=== PATIENT | female | born 1940 | race Caucasian/White ===

== ENCOUNTER 2017-01-04 13:53 | Inpatient (IN) ==
--- NOTE | 2017-01-04 14:24 | CT Report ---
Ordering physician: Velia Wright Exam: CT brain without contrast Date: 01/04/2017 Comparison: None Reason: Unsteady gait Technique: Axial images of the head were obtained without the use of contrast. Total DLP was 1081.10 mGy*cm. Findings: The lateral ventricle is minimally larger in size than the right which is felt to represent a probable normal variant. No midline displacement. There is no evidence of an acute infarction, recent intracranial hemorrhage or abnormal mass effect. Minimal atrophy and cerebral hypodensities. Vascular calcifications are noted. The osseous structures appear intact. The mastoid air cells and visualized paranasal sinuses are clear. Impression: No acute intracranial abnormality is identified. Minimal atrophy and microvascular disease. The CT exam was performed using one or more of the following dose reduction techniques: Automated exposure control and adjustment of the mA and/or kV according to patient size. PROCEDURE INTERPRETED AT [facility] DEPARTMENT OF RADIOLOGY Final Report Signed by: Dr. Joan Varner
--- NOTE | 2017-01-04 14:33 | XRay Report ---
Portable chest Date: 01/04/2017 Clinical history: Cardiomegaly Comparison: 05/02/2012 Technique: Portable AP sitting chest Findings: The heart is minimally enlarged with uncoiling of the aorta. Chronic scarring in the lungs with minimal diffuse parenchymal findings at the lung bases. Stable mediastinum with degenerative changes. Impression: Minimal cardiomegaly with minimal atelectasis/edema at the lung bases. PROCEDURE INTERPRETED AT [facility] DEPARTMENT OF RADIOLOGY Final Report Signed by: Dr. Joan Varner
[2017-01-04 14:46] LABS: Basophils % 0.2 % (0.0-0.8); Eosinophils % 0.2 % (0.00-10.9); Hematocrit 32.6 VOL% (35.7-47.0); Hemoglobin 11.8 GM/DL (12.0-16.0); Immature Granulocytes % 0.2 %; Immature Granulocytes Absolute 0.01 #; Lymphocytes % 19.6 % (21.3-54.2); Mean Corpuscular HGB Conc 36.2 GM/DL (32-36); Mean Corpuscular Hemoglobin 36 PG (27-34); Mean Corpuscular Volume 100.3 FL (87-102); Mean Platelet Volume 9.5 FL (9.6-12.0); Monocytes # 0.4 10*3/uL (0.11-0.8); Neutrophils # 3.7 10*3/uL (1.4-7.4); Neutrophils % 71.8 % (38.7-73.9); Platelet Count 181 T/CUMM (130-400); Red Blood Count 3.25 MC/CUMM (3.8-5.5); Red Cell Distribution Width 14.3 % (9.3-17.3); White Blood Count 5.1 T/CUMM (4-12)
[2017-01-04] MEDS ORDERED: SODIUM CHLORIDE 0.9% 1,000 ML IV STA (14:54)
[2017-01-04 14:55] LABS: INR 1.1; PT Patient Result 12.1 SECS; Partial Thromboplastin Time 26.4 SECS (0-40)
--- NOTE | 2017-01-04 15:06 | Emergency Department Note ---
Nathen Louise Manpreet, am scribing for, and in the presence of, Reinier Razo MD 14: 57. Danni Louise James D, MD, personally performed the services described in this documentation, ascribed by Alec Sena in my presence, and it is both accurate and complete [id number] . Arrival - Arrival Chief Complaint: Altered Mental Status Stated Complaint: possible stroke. near syncpe. vomiting ED Nursing Triage Note: Confusion and slurred speech onset x 2 days - generalized weakness - decreased PO intake Mode of Arrival: Wheelchair Limitations: No Limitations Source: Patient, RN Notes Reviewed - History of Present Illness HPI Narrative: Pt is a 76 y/o female, with PMHx of HTN, A-fib, IDDM, HLD, and thyroid disorder , who presents to the ED with CC of confusion for an unknown time. Pt thinks "I' m gonna " and "feels rotten." Pt c/o "feeling bad all over." Pt is orientated to day but not month or year. Pt denies any dysuria, SOB, or frequency. Pt states "she is thirsty not for water but for Mountain dew." Pt states she lives at home in [facility] with her son. No other pains/ complaints reported to the ED. Onset (ago): unknown (2 days ago) Consistency: constant Severity: moderate Severity scale (1-10): 3 Date of Last Menstrual Period: hyster Allergies/Adverse Reactions: Allergies Allergy/AdvReac Type Severity Reaction Status Date / Time acetaminophen [From Tylenol] Allergy Verified 09/01/14 12:27 Home Medications: Home Medications Medication Instructions Recorded Confirmed Type Aclidinium [place] [Tudorza 1 puff INH BID 09/01/14 02/14/16 History Pressair] Amiodarone HCl 200 mg PO DAILY 09/01/14 02/14/16 History Aspirin [Ecotrin] 325 mg PO DAILY 09/01/14 02/11/16 History Carbidopa/Levodopa 25-100 [Sinemet 1 tablet PO BID 09/01/14 02/11/16 History 25-100] Insulin Aspart Prot/Insuln Asp 30 unit SUBCUT BEDTIME 09/01/14 02/14/16 History [NovoLOG Mix 70-30 FlexPen] Insulin Aspart Prot/Insuln Asp 60 unit SUBCUT AC BREAKFAST 09/01/14 02/14/16 History [NovoLOG Mix 70-30 FlexPen] Levothyroxine Tab [Synthroid Tab] 100 mcg PO DAILY@0700 09/01/14 02/14/16 History Pravastatin Sodium 40 mg PO DAILY 09/01/14 02/11/16 History Apixaban [Eliquis] 5 mg PO BID 02/11/16 02/14/16 History Magnesium Oxide [Magox 400] 800 mg PO BID 02/11/16 02/14/16 History Multivitamin (Ocuvite) [Ocuvite] 1 tablet PO DAILY 02/11/16 02/11/16 History Omeprazole [Prilosec] 20 mg PO BID 02/11/16 02/14/16 History Propranolol HCl [Propranolol Tab] 10 mg PO BID 02/11/16 02/11/16 History Triamcinolone Acetonide 1 applic TOP BID 02/11/16 02/11/16 History [Triamcinolone 0.1% Cream] Triamterene/Hydrochlorothiazid 1 each PO DAILY 02/11/16 02/14/16 History [Triamterene-Hctz 37.5-25 mg Cp] cephALEXin [Keflex] 250 mg PO QID 02/11/16 02/11/16 History guaiFENesin/DM ER 600-30 [Mucinex 1 tablet PO Q12HR PRN 02/11/16 02/11/16 History Dm] Review of System - Review of System 12 point system: reviewed and no additional remarkable complaints except as stated - Review of System Constitutional: Present: weakness. Absent: chills, diaphoresis, fever Respiratory: Absent: cough Cardiovascular: Absent: chest pain Gastrointestinal: Absent: abdominal pain, nausea, vomiting Genitourinary female: Absent: dysuria, frequency Musculoskeletal: Absent: arm pain, back pain Neurological: Present: confusion. Absent: headache, weakness, numbness, paresthesias, other Medical,Surgical,& Family Hx - Medical History Cardio: History of: Cardiac Dysrhythmia (A-Fib), Hypertension, Cardiovascular Problems ([employer] Dr. Cunningham) Neurology: No history of: Seizures HEENT: History of: Eye Problem (Reading Glasses), Dental Problems (Missing Teeth ) Endocrine: History of: Diabetes Mellitus (IDDM), Dyslipidemia, Thyroid Disorder Respiratory: History of: Respiratory Problems (Chronic Cough; Abnormal CT; Dr. Montenegro Bronchoscopy 02/14/16) Genitourinary: History of: Kidney Stones Gastrointestinal: History of: GERD, Polyps Musculoskeletal: History of: Back/Neck Problems (Back Pain), Musculoskeletal Problems (Athritis) Other: No history of: Anesthesia Reactions, Cancer - Surgical History HEENT Surgeries: Surgical HX of: Eye Surgery (Cataract Rt/Lt), Thyroid Surgery ( Nuclear Pill) Abdominal Surgeries: Surgical HX of: Cholecystectomy, EGD (Many Yrs Ago), Hernia Repair Patient denies: Colonoscopy Reproductive Surgeries: Surgical HX of;: Hysterectomy (Complete) Orthopedic Surgeries: Surgical HX of;: Total Knee Replacement (Rt/Lt) - Social History Smoking Status: Never smoker Frequency of Alcohol Use: None Type of Drug Use: None Exam Vital Signs: Vital Signs Temperature 98.0 F 01/04/17 14:54 Pulse Rate 77 01/04/17 14:54 Respiratory Rate 20 01/04/17 14:54 Blood Pressure 172/72 01/04/17 14:54 O2 Sat by Pulse Oximetry 97 01/04/17 14:01 GENERAL: This is a well-nourished well-developed obese white female in no apparent distress. VITAL SIGNS: Reviewed HEENT: Head is atraumatic and normocephalic. Pupils are equal round react to light. Extraocular movements are intact. Oropharynx is benign with dry mucous membranes. NECK: Neck is soft and supple without tenderness. There are no masses. There is no lymphadenopathy. LUNGS: Lungs are clear to auscultation. Chest rises symmetrically. There is no chest wall tenderness. CV: Heart is regular rate and rhythm without murmurs rubs or gallops. ABDOMEN: Abdomen is soft, nontender to palpation. There are no abdominal abnormal masses palpated. There is no organomegaly. Bowel sounds are present and active. SKIN: Skin is warm and dry. No rash. EXTREMITIES: Patient has full range of motion without tenderness. There is no pedal edema. NEUROLOGIC: Awake, alert, oriented to person, disoriented to time. Cranial nerves II through XII are grossly intact. Motor is 5 over 5 in all extremities bilaterally. Deep tendon reflexes are 2+ and bilaterally equal. Course Course Narrative: Patient was given Rocephin in the emergency department. - Consultations Consultation #1: Discussed with hospitalist. Patient will be admitted to their service. Time: 15:47 Results - Labs CBC & BMP: 01/04/17 14:33 01/04/17 14:33 Lab Results: I have reviewed the patients labs Labs: Laboratory Tests 01/04/17 14:33 WBC 5.1 RBC 3.25 L Hgb 11.8 L Hct 32.6 L MCV 100.3 MCH 36 H MCHC 36.2 H MPV 9.5 L Lymph % (Auto) 19.6 L Lymph # (Auto) 1.0 L Laboratory Tests 01/04/17 01/04/17 01/04/17 14:33 14:33 14:33 WBC 5.1 RBC 3.25 L Hgb 11.8 L Hct 32.6 L MCV 100.3 MCH 36 H MCHC 36.2 H MPV 9.5 L Lymph % (Auto) 19.6 L Lymph # (Auto) 1.0 L INR 1.1 PT Patient/Control Mix 12.1 Circ Anticoag PTT 26.4 Sodium 135 L Potassium 3.8 Chloride 99 Carbon Dioxide 26 Anion Gap 13.8 BUN 36 H Creatinine 1.80 H GFR Calculation 29 BUN/Creatinine Ratio 20.00 Glucose 392 H Total Bilirubin 1.20 H Troponin I < 0.015 Globulin 3.9 H Serum Alcohol < 15 L - Diagnostic Findings Procedure: Chest x-ray: report reviewed by me, image reviewed by me ("Chest X- ray: Minimal cardiomegaly with minimal atelectasis/edema at the lung bases."), CT: report reviewed by me ("CT head w/o con: No acute intercranial lesion or hemorrhage.") Disposition Clinical Impression: Altered mental status, Diabetes mellitus, Moderate dehydration, Urinary tract infection Case discussed with: patient Disposition: Still a Patient Condition: Stable Time of Disposition: 15:26
[2017-01-04 15:13] LABS: Alanine Aminotransferase 24 U/L (13-56); Albumin 4.4 G/DL (3.4-5.0); Alkaline Phosphatase 69 U/L (45-117); Aspartate Amino Transferase 18 U/L (0-37); Blood Urea Nitrogen 36 MG/DL (7-18); Calcium 9.7 MG/DL (8.5-10.1); Glucose 392 MG/DL (74-106); Osmolality,Calculated 293.1 MOS/KG (273-304); Potassium 3.8 MMOL/L (3.5-5.1); Sodium 135 MMOL/L (136-145); Total Protein 8.3 G/DL (6.4-8.3); Troponin I Only < 0.015 NG/ML (0.00-0.045)
[2017-01-04 15:26] LABS: Apearance,Urine CLOUDY (Clear); Bacteria,Urine Moderate /HPF (Few); Bilirubin,Urine Negative (Negative); Blood, Urine Negative (Negative); Glucose,Urine (UA) 150 mg/dL (Negative); Ketones,Urine 5 mg/dL (Negative); Mucus,Urine Occasional /LPF (Occasional); Nitrite,Urine Negative (Negative); Protein,Urine >=500 MG/DL; Squamous Epithelial Cell,Urine Occasional /HPF (0-10); Triple Phosphate Crystal,Urine Occasional /HPF (Few); Urine Specific Gravity 1.012 (1.001-1.035); Urine Urobilinogen < 2.0 EU/DL (0.2-1.0); WBC,Urine 99 /HPF (0-6)
[2017-01-04 15:27] LABS: Urine Color Yellow (Yellow)
[2017-01-04 15:32] LABS: Barbiturates Screen,Urine Negative (Negative); Benzodiazepines Screen,Urine Negative (Negative); Cannabinoid Screen,Urine Negative (Negative); Opiate Screen,Urine Negative (Negative); Phencyclidine Screen,Urine Negative (Negative)
[2017-01-04] MEDS ORDERED: cefTRIAXone 1,000 MG in SODIUM CHLORIDE 0.9% 100 ML IV STA (15:49)
[2017-01-04] MEDS ORDERED: LABETALOL 20 MG/4 ML SYRINGE IV PRN (16:21)
[2017-01-04] MEDS ORDERED: DEXTROSE 50% 25 GM/50 ML SYRINGE IV PRN ×2 (16:31→17:56)
[2017-01-04] MEDS ORDERED: GLUCAGON 1 MG VIAL IM PRN ×2 (16:31→17:56)
--- NOTE | 2017-01-04 16:41 | Hospitalist History & Physical ---
Assessment and Plan (1) Slurred speech Status: Acute Current Visit: Yes (2) Atrial fibrillation Status: Acute Current Visit: No (3) Altered mental status Status: Acute Current Visit: Yes (4) Diabetes mellitus Status: Acute Current Visit: Yes (5) Moderate dehydration Status: Acute Current Visit: Yes (6) Urinary tract infection Status: Acute Assessment and plan: Our plan for this patient will be admitting her to monitored bed. Some of her problems could be explained by a urinary tract infection. Although she is mildly dehydrated. I did note that she is on Sinemet. She did not tell me that she had Parkinson's. Her slurred speech makes me have to consider that she has had a stroke. Her CT scan was negative. I will continue with the stroke workup. I did note that she had elevated lactate. We will repeat that lab. Continue with hydration. For now unsure about how sporadic she is with eating. I want a bedside swallowing eval since she does have slurred speech. Her son reports she is very noncompliant with all her medications. Will check an A1c to see how well her glucose is controlled Current Visit: Yes History of Present Illness Chief complaint: Slurred speech weakness and confusion History of present illness: Ms. Falcon is a 76 year old female who presents to our hospital today reporting that she just does not feel right. Patient's son reports that she has been having trouble operating her lift chair and her TV remote for the past couple of days. She usually does not have any problems. Overall she has been weaker. She has been walking slower than she normally does. She could not operate her phone. Her speech is slurred. He reports these are all changes that started 2 days ago. He wanted her to come to the emergency room but she refused. She normally sees Dr. Louise. He had a brought up to the emergency room today for further evaluation. Patient told the ER physician that she has been thirsty but not really for water so should bring drinking a lot of Mountain Dew's. She said that she feels rotten and like she is going to . I was consulted for admission. Home Medications Medication Instructions Recorded Confirmed Type Amiodarone HCl 200 mg PO DAILY 09/01/14 01/04/17 History Aspirin [Ecotrin] 325 mg PO DAILY 09/01/14 01/04/17 History Carbidopa/Levodopa 25-100 [Sinemet 1 tablet PO BID 09/01/14 01/04/17 History 25-100] Insulin Aspart Prot/Insuln Asp 40 unit SUBCUT BEDTIME 09/01/14 01/04/17 History [NovoLOG Mix 70-30 FlexPen] Insulin Aspart Prot/Insuln Asp 60 unit SUBCUT AC BREAKFAST 09/01/14 01/04/17 History [NovoLOG Mix 70-30 FlexPen] Levothyroxine Tab [Synthroid Tab] 100 mcg PO DAILY@0700 09/01/14 01/04/17 History Pravastatin Sodium 40 mg PO DAILY 09/01/14 01/04/17 History Apixaban [Eliquis] 5 mg PO BID 02/11/16 01/04/17 History Magnesium Oxide [Magox 400] 800 mg PO BID 02/11/16 01/04/17 History Multivitamin (Ocuvite) [Ocuvite] 1 tablet PO DAILY 02/11/16 01/04/17 History Omeprazole [Prilosec] 20 mg PO BID 02/11/16 01/04/17 History Propranolol HCl [Propranolol Tab] 10 mg PO BID 02/11/16 01/04/17 History Triamcinolone Acetonide 1 applic TOP BID 02/11/16 01/04/17 History [Triamcinolone 0.1% Cream] Triamterene/Hydrochlorothiazid 1 each PO DAILY 02/11/16 01/04/17 History [Triamterene-Hctz 37.5-25 mg Cp] cephALEXin [Keflex] 250 mg PO QID 02/11/16 01/04/17 History Allergies Allergy/AdvReac Type Severity Reaction Status Date / Time acetaminophen [From Tylenol] Allergy Verified 09/01/14 12:27 Medical,Surgical,& Family Hx - Medical History Cardio: History of: Cardiac Dysrhythmia (A-Fib), Hypertension, Cardiovascular Problems ([employer] Dr. Cunningham) Neurology: No history of: Seizures HEENT: History of: Eye Problem (Reading Glasses), Dental Problems (Missing Teeth ) Endocrine: History of: Diabetes Mellitus (IDDM), Dyslipidemia, Thyroid Disorder Respiratory: History of: Respiratory Problems (Chronic Cough; Abnormal CT; Dr. Montenegro Bronchoscopy 02/14/16) Genitourinary: History of: Kidney Stones Gastrointestinal: History of: GERD, Polyps Musculoskeletal: History of: Back/Neck Problems (Back Pain), Musculoskeletal Problems (Athritis) Other: No history of: Anesthesia Reactions, Cancer - Surgical History HEENT Surgeries: Surgical HX of: Eye Surgery (Cataract Rt/Lt), Thyroid Surgery ( Nuclear Pill) Abdominal Surgeries: Surgical HX of: Cholecystectomy, EGD (Many Yrs Ago), Hernia Repair Patient denies: Colonoscopy Reproductive Surgeries: Surgical HX of;: Hysterectomy (Complete) Orthopedic Surgeries: Surgical HX of;: Total Knee Replacement (Rt/Lt) - Family History Family History: Reports;: Family Hypertension - Social History Smoking Status: Never smoker Frequency of Alcohol Use: None Type of Drug Use: None 12 point system: reviewed and no additional remarkable complaints except as stated Exam - Constitutional Vitals: Period Temp Pulse Resp BP Sys/Winn Pulse Ox Last 24 Hr 98.0 F-98.0 F 77-77 18-20 172-172/72-72 97 General appearance: over weight - Head Head exam: Present: normal inspection - Eye Eye exam: Present: EOMI Pupils: Present: KELSEY - ENT ENT exam: Present: normal exam - Neck Neck exam: Present: normal inspection - Respiratory Respiratory exam: Present: clear to auscultation bilaterally - Cardiovascular Cardiovascular exam: Present: regular rate and rhythm - GI/Abdominal GI/Abdominal exam: Present: normal bowel sounds - Extremities Exam Extremities exam: Present: normal inspection - Back Exam Back exam: Present: normal inspection - Neurological Exam Neurological exam: Present: other (Patient is awake. Her speech is definitely slurred. Her mind process seems to be slower. She is globally weak cannot final weakness that lateralizes. Reflexes are +2 and equal) - Psychiatric Psychiatric exam: Present: depressed - Skin Skin exam: Present: normal color Results - Labs CBC & BMP: 01/04/17 14:33 01/04/17 14:33
[2017-01-04] MEDS ORDERED: cefTRIAXone 1,000 MG VIAL ONE (16:49)
--- NOTE | 2017-01-04 17:20 | Ultrasound Report ---
Exam: Carotid ultrasound Date: 09/03/2016 Comparison: 12/17/2014 Technique: Duplex scans of the carotid and vertebral arteries using B-mode/Osei scale imaging and Doppler spectral analysis and color flow. Reason: Slurred speech and weakness Findings: The right ICA measures 4.0 mm in diameter and the left ICA measures 3.8 mm in diameter. Color-flow documented in the visualized arteries. The peak systolic velocities are as follows: Right CCA: 83.3 Right ICA: 123.3 Right ECA: 131.3 Left CCA: 60.2 Left ICA: 91.7 Left ECA: 74.0 The peak systolic ICA/CCA velocity ratios are as follows: 1.5 on the right and 1.5 on the left. Antegrade flow is present in both vertebral arteries. Impression:[Less than 50% stenosis in both internal carotid arteries with progressive calcific plaque formation. Antegrade flow in both vertebral arteries. The patient's heart rate is noted to be irregular on the scans that were obtained.] The Society of Radiologists in Ultrasound consensus conference criteria was used. The Ultrasound images were captured and stored. PROCEDURE INTERPRETED AT [facility] DEPARTMENT OF RADIOLOGY Final Report Signed by: Dr. Joan Varner
[2017-01-04] MEDS ORDERED: INSULIN NPH/REGULAR 70/30 100 UNIT/ML SUBCUT SCH (21:00)
[2017-01-04] MEDS: SODIUM CHLORIDE 0.9% 1,000 ML IV SCH (21:04)
[2017-01-04] MEDS: PROPRANOLOL 10 MG TABLET PO SCH (21:05)
[2017-01-04] MEDS: PANTOPRAZOLE 40 MG TABLET PO SCH (21:05)
[2017-01-04] MEDS: APIXABAN 5 MG TABLET PO SCH (21:05)
[2017-01-04] MEDS: MAGNESIUM OXIDE 400 MG TABLET PO SCH (21:05)
[2017-01-04] MEDS: TRIAMCINOLONE 0.1% CREAM 15 GM TUBE TOP SCH (21:05)
[2017-01-04] MEDS: INSULIN REGULAR 100 UNIT/ML SUBCUT SCH (21:05)
[2017-01-04] MEDS: CARBIDOPA/LEVODOPA 25-100 MG TABLET PO SCH (21:05)
[2017-01-05] MEDS: SODIUM CHLORIDE 0.9% 1,000 ML IV SCH ×2 (06:21→14:23)
[2017-01-05] MEDS: LEVOTHYROXINE 100 MCG TABLET PO SCH (06:21)
[2017-01-05] MEDS ORDERED: INSULIN NPH/REGULAR 70/30 100 UNIT/ML SUBCUT SCH ×3 (07:30→08:53)
[2017-01-05 07:38] LABS: Basophils % 0.4 % (0.0-0.8); Eosinophils # 0.1 10*3/uL (0.0-0.87); Eosinophils % 1.1 % (0.00-10.9); Hematocrit 27.9 VOL% (35.7-47.0); Lymphocytes # 1.7 10*3/uL (1.4-4.0); Lymphocytes % 36.5 % (21.3-54.2); Mean Corpuscular HGB Conc 35.8 GM/DL (32-36); Mean Corpuscular Hemoglobin 36 PG (27-34); Mean Corpuscular Volume 101.5 FL (87-102); Mean Platelet Volume 9.7 FL (9.6-12.0); Monocytes # 0.5 10*3/uL (0.11-0.8); Monocytes % 11.5 % (1.7-12.7); Neutrophils # 2.3 10*3/uL (1.4-7.4); Neutrophils % 50.5 % (38.7-73.9); Platelet Count 179 T/CUMM (130-400); Red Blood Count 2.75 MC/CUMM (3.8-5.5); Red Cell Distribution Width 14.5 % (9.3-17.3); White Blood Count 4.5 T/CUMM (4-12)
[2017-01-05 08:10] LABS: Calcium 8.3 MG/DL (8.5-10.1); Osmolality,Calculated 287.8 MOS/KG (273-304)
--- NOTE | 2017-01-05 08:36 | Hospitalist Progress Note ---
Hospitalist: Subjective Interval history: Patient admitted for evaluation of possible stroke. She states that her speech is her normal. She does not feel it has changed. She has no further complaints. Exam - Constitutional Vitals: Period Temp Pulse Resp BP Sys/Winn Pulse Ox Last 24 Hr 97.1 F-98.4 F 56-77 16-20 106-172/52-84 88-100 General appearance: no acute distress, morbidly obese - Head Head exam: Present: normal inspection, normocephalic - Eye Eye exam: Present: EOMI, conjunctival injection Pupils: Present: KELSEY - ENT ENT exam: Present: other (edentulous) - Respiratory Respiratory exam: Present: clear to auscultation bilaterally. Absent: rales, rhonchi, wheezes - Cardiovascular Cardiovascular exam: Present: regular rate and rhythm. Absent: systolic murmur - GI/Abdominal GI/Abdominal exam: Present: normal bowel sounds, soft. Absent: tenderness - Extremities Exam Extremities exam: Absent: edema - Neurological Exam Neurological exam: Present: alert (oriented to name and place, not date or year ; no obvious slurred speech), CN II-XII intact, other - Psychiatric Psychiatric exam: Present: normal affect, normal mood - Skin Skin exam: Present: normal color, warm Results - Labs CBC & BMP: 01/05/17 06:57 01/05/17 06:57 - Impressions 1. Slurred speech, concerning for stroke. Patient states that current speech is her normal. It may be influenced by her edentulous state. Carotid doppler shows <50% carotid artery stenosis; MRI/echo ordered 2. Acute encephalopathy, could be 2nd to UTI or mild dehydration 3. Possible UTI: UA with pyuria; continue antibiotics; await urine culture 4. JACKELINE/dehydration: Improving 5. Anemia: HCT dropped; could be diluational 6. h/o DM: sugars initially uncontrolled; now with sugar of 62; hba1c: 10.1 7. h/o P-afib: on eliquis and amiodarone; keep mg at least 2 and k at least 4 8. HypoK: replete; monitor Plan: await results of echo/mri;PT/OT/speech/hold maxzide; continue aspirin; monitor renal functions; basic anemia work up; control sugars; adjust insulin to avoid hypoglycemia; continue rocephin for now; await urine culture.
[2017-01-05] MEDS ORDERED: POTASSIUM CHLORIDE 20 MEQ TABLET PO ONE (08:53)
[2017-01-05] MEDS ORDERED: ASPIRIN EC 325 MG TABLET PO SCH (09:00)
[2017-01-05] MEDS ORDERED: TRIAMTERENE/HCTZ 37.5-25 MG CAPSULE PO SCH (09:00)
[2017-01-05] MEDS: INSULIN REGULAR 100 UNIT/ML SUBCUT SCH ×4 (09:31→20:41)
[2017-01-05] MEDS: MAGNESIUM OXIDE 400 MG TABLET PO SCH ×2 (09:32→20:42)
[2017-01-05] MEDS: MULTIVITAMIN (OCUVITE) TABLET PO SCH (09:32)
[2017-01-05] MEDS: PROPRANOLOL 10 MG TABLET PO SCH ×2 (09:32→20:42)
[2017-01-05] MEDS: CARBIDOPA/LEVODOPA 25-100 MG TABLET PO SCH ×2 (09:32→20:41)
[2017-01-05] MEDS: AMIODARONE 200 MG TABLET PO SCH (09:32)
[2017-01-05] MEDS: PANTOPRAZOLE 40 MG TABLET PO SCH ×2 (09:33→20:42)
[2017-01-05] MEDS: PRAVASTATIN 40 MG TABLET PO SCH (09:33)
[2017-01-05] MEDS: APIXABAN 5 MG TABLET PO SCH ×2 (09:35→20:41)
[2017-01-05] MEDS: TRIAMCINOLONE 0.1% CREAM 15 GM TUBE TOP SCH ×2 (09:36→20:42)
[2017-01-05] MEDS: POTASSIUM CHLORIDE RIDER 10 MEQ in PREMIX 1 EACH IV SCH ×3 (09:50→14:23)
--- NOTE | 2017-01-05 10:11 | Neurology Consult Note ---
History of Present Illness History of present illness: 76 years old right-handed white lady with past medical history significant for multiple medical problems admitted to the hospital with feeling tired, fatigued some confusion. Patient's son reports that she has been having trouble operating her lift chair and her TV remote for the past couple of days. She usually does not have any problems. Overall she reported some weakness but not anymore. She was brought to the hospital and found to have UTI. She is on antibiotic and doing much better. CT of the head is unremarkable for any acute pathology. She is able to get up and walk with help of a rolling walker. Her speech is fluent. No dysarthria noted. No focal weakness noted. Home Medications Medication Instructions Recorded Confirmed Type Amiodarone HCl 200 mg PO DAILY 09/01/14 01/04/17 History Aspirin [Ecotrin] 325 mg PO DAILY 09/01/14 01/04/17 History Carbidopa/Levodopa 25-100 [Sinemet 1 tablet PO BID 09/01/14 01/04/17 History 25-100] Insulin Aspart Prot/Insuln Asp 40 unit SUBCUT BEDTIME 09/01/14 01/04/17 History [NovoLOG Mix 70-30 FlexPen] Insulin Aspart Prot/Insuln Asp 60 unit SUBCUT AC BREAKFAST 09/01/14 01/04/17 History [NovoLOG Mix 70-30 FlexPen] Levothyroxine Tab [Synthroid Tab] 100 mcg PO DAILY@0700 09/01/14 01/04/17 History Pravastatin Sodium 40 mg PO DAILY 09/01/14 01/04/17 History Apixaban [Eliquis] 5 mg PO BID 02/11/16 01/04/17 History Magnesium Oxide [Magox 400] 800 mg PO BID 02/11/16 01/04/17 History Multivitamin (Ocuvite) [Ocuvite] 1 tablet PO DAILY 02/11/16 01/04/17 History Omeprazole [Prilosec] 20 mg PO BID 02/11/16 01/04/17 History Propranolol HCl [Propranolol Tab] 10 mg PO BID 02/11/16 01/04/17 History Triamcinolone Acetonide 1 applic TOP BID 02/11/16 01/04/17 History [Triamcinolone 0.1% Cream] Triamterene/Hydrochlorothiazid 1 each PO DAILY 02/11/16 01/04/17 History [Triamterene-Hctz 37.5-25 mg Cp] cephALEXin [Keflex] 250 mg PO QID 02/11/16 01/04/17 History Allergies Allergy/AdvReac Type Severity Reaction Status Date / Time acetaminophen [From Tylenol] Allergy Verified 09/01/14 12:27 12 point system: reviewed and no additional remarkable complaints except as stated Medical,Surgical,& Family Hx - Medical History Cardio: History of: Cardiac Dysrhythmia (A-Fib), Hypertension, 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 Montenegro Bronchoscopy 02/14/16) Genitourinary: History of: Kidney Stones Gastrointestinal: History of: GERD, Polyps Musculoskeletal: History of: Back/Neck Problems (Back Pain), Musculoskeletal Problems (Athritis) Other: No history of: Anesthesia Reactions, Cancer - Surgical History HEENT Surgeries: Surgical HX of: Eye Surgery (Cataract Rt/Lt), Thyroid Surgery ( Nuclear Pill) Abdominal Surgeries: Surgical HX of: Cholecystectomy, EGD (Many Yrs Ago), Hernia Repair Patient denies: Colonoscopy Reproductive Surgeries: Surgical HX of;: Hysterectomy (Complete) Orthopedic Surgeries: Surgical HX of;: Total Knee Replacement (Rt/Lt) - Family History Family History: Reports;: Family Diabetes (both parents), Family Heart Disease, Family Hypertension - Social History Smoking Status: Never smoker Frequency of Alcohol Use: None Type of Drug Use: None Exam - Constitutional Vitals: Period Temp Pulse Resp BP Sys/Winn Pulse Ox Last 24 Hr 97.1 F-98.4 F 56-77 16-20 106-172/52-84 88-100 Exam: GENERAL: Patient is in no acute distress. NECK: Neck is supple. There is no JVD. No carotid bruits present. No thyroid masses. CVS: First and second heart sounds are normal. There is no S3 present. Regular rate and rhythm. RESPIRATORY: Lungs are clear to auscultation without any rales or rhonchi. ABDOMEN: Soft and non-tender. Bowel sounds are present. There is no hepatosplenomegaly. EXT: There is no palpable edema. Peripheral pulses are present. Skin: No rashes Central Nervous system: General: Alert, awake and Oriented x 3 Speech: Fluent Comprehension: Intact and normal Facial expressions: Normal Cranial Nerves: CN1/Olfactory: Normal CN II/ Optic: Normal, Visual Jain unreliable CN III, and : KELSEY & EOMI CN V: Normal & intact CN VII: face is symmetric CNVIII: Normal CN XI/X/XI/XII: Intact and Normal Motor: Bulk and Tone is normal. Strength in the right 5/5 Strength in the left 5/5 Sensory: Grossly intact for all the modalities of PP, LT and temp sense Reflexes: 1+ and symmetrical Cerebellar function: Normal finger to nose and heel to arshad testing. Toes: Equivocal Gait: Able to get up and walk with the help of a walker Results - Labs CBC & BMP: 01/05/17 06:57 01/05/17 06:57 Assessment and Plan (1) Altered mental status Status: Acute Assessment and plan: Altered mental status likely related to UTI. No evidence of stroke, TIAs, epilepsy or seizures Cancel MRI Stop aspirin Continue Eliquis 5 mg twice daily No further intervention needed from neuro standpoint Agree with PT and OT Thank you for the consult Current Visit: Yes
[2017-01-05] MEDS ORDERED: POTASSIUM CHLORIDE RIDER 10 MEQ in PREMIX 1 EACH IV ONE (18:30)
[2017-01-06 06:17] LABS: Basophils % 0.2 % (0.0-0.8); Eosinophils # 0.1 10*3/uL (0.0-0.87); Eosinophils % 1.6 % (0.00-10.9); Hematocrit 27.9 VOL% (35.7-47.0); Hemoglobin 9.6 GM/DL (12.0-16.0); Immature Granulocytes % 0.2 %; Immature Granulocytes Absolute 0.01 #; Lymphocytes # 1.9 10*3/uL (1.4-4.0); Lymphocytes % 36.8 % (21.3-54.2); Mean Corpuscular HGB Conc 34.4 GM/DL (32-36); Mean Corpuscular Hemoglobin 36 PG (27-34); Mean Corpuscular Volume 105.3 FL (87-102); Mean Platelet Volume 9.6 FL (9.6-12.0); Monocytes # 0.6 10*3/uL (0.11-0.8); Monocytes % 11.4 % (1.7-12.7); Neutrophils # 2.6 10*3/uL (1.4-7.4); Neutrophils % 49.8 % (38.7-73.9); Platelet Count 154 T/CUMM (130-400); Red Blood Count 2.65 MC/CUMM (3.8-5.5); Red Cell Distribution Width 14.5 % (9.3-17.3); White Blood Count 5.2 T/CUMM (4-12)
[2017-01-06] MEDS: LEVOTHYROXINE 100 MCG TABLET PO SCH (06:36)
[2017-01-06] MEDS: POTASSIUM CHLORIDE RIDER 10 MEQ in PREMIX 1 EACH IV SCH (06:41)
[2017-01-06 06:54] LABS: % Iron Saturation 37.5 % (18-50); Ferritin 152.3 ng/ml (8-252); Free T4 (Free Thyroxine) 0.34 NG/DL (0.76-1.46); Magnesium 2.1 MG/DL (1.8-2.4); Potassium 3.4 MMOL/L (3.5-5.1); Thyroid Stimulating Hormone 50.7 uIU/ml (0.358-3.74)
[2017-01-06] MEDS: INSULIN REGULAR 100 UNIT/ML SUBCUT SCH ×2 (08:49→12:50)
[2017-01-06] MEDS: PROPRANOLOL 10 MG TABLET PO SCH (08:50)
[2017-01-06] MEDS: PANTOPRAZOLE 40 MG TABLET PO SCH (08:50)
[2017-01-06] MEDS: CARBIDOPA/LEVODOPA 25-100 MG TABLET PO SCH (08:50)
[2017-01-06] MEDS: PRAVASTATIN 40 MG TABLET PO SCH (08:50)
[2017-01-06] MEDS: MULTIVITAMIN (OCUVITE) TABLET PO SCH (08:50)
[2017-01-06] MEDS: APIXABAN 5 MG TABLET PO SCH (08:51)
[2017-01-06] MEDS: MAGNESIUM OXIDE 400 MG TABLET PO SCH (08:51)
[2017-01-06] MEDS: AMIODARONE 200 MG TABLET PO SCH (08:51)
[2017-01-06] MEDS: TRIAMCINOLONE 0.1% CREAM 15 GM TUBE TOP SCH (08:54)
[2017-01-06] MEDS ORDERED: ASPIRIN EC 81 MG TABLET PO SCH (09:00)
--- NOTE | 2017-01-06 10:50 | Discharge Summary ---
Hospital Course - Hospital Course Hospital Course: Patient admitted for slurred speech and confusion. There was a concern for a stroke. Head CT did not show an acute abnormality. Carotid ultrasound showed no <50% stenosis. When I saw the patient on 01/05/17, there were no dysarthria. She was fairly oriented and confusion had resolved. She was seen by neurology and Dr. Hair did not feel she had a stroke. So, MRI was cancelled. Patient was likely confused because of hypoglycemic episodes. While inpatient, her am sugars were low. They were 50-72 despite adjustments. Her evening dose of novolog 70-30 will be held and her morning dose of novolog 70-30 will be reduced until she is seen by her PCP. Her PCP may consider switching to lantus. Another thought for her symptoms were possible UTI. Her UA showed pyuria, and she was started on rocephin. Her UCX showed no growth. At this point, will not discharge on antibiotics. She will need to follow up with her PCM in 1-2 weeks. Discharge Plan - Discharge Data Condition at Discharge: Stable Discharge Diet: diabetic diet - Discharge Medications Continue Pravastatin Sodium 40 mg PO DAILY Amiodarone HCl 200 mg PO DAILY Aspirin [Ecotrin] 325 mg PO DAILY Levothyroxine Tab [Synthroid Tab] 100 mcg PO DAILY@0700 Carbidopa/Levodopa 25-100 [Sinemet 25-100] 1 tablet PO BID Multivitamin (Ocuvite) [Ocuvite] 1 tablet PO DAILY Propranolol HCl [Propranolol Tab] 10 mg PO BID Apixaban [Eliquis] 5 mg PO BID Triamcinolone Acetonide [Triamcinolone 0.1% Cream] 1 applic TOP BID Omeprazole [Prilosec] 20 mg PO BID Magnesium Oxide [Magox 400] 800 mg PO BID Changed Insulin Aspart Prot/Insuln Asp [NovoLOG Mix 70-30 FlexPen] 10 unit SUBCUT AC BREAKFAST #0 Discontinued Insulin Aspart Prot/Insuln Asp [NovoLOG Mix 70-30 FlexPen] 40 unit SUBCUT BEDTIME cephALEXin [Keflex] 250 mg PO QID Triamterene/Hydrochlorothiazid [Triamterene-Hctz 37.5-25 mg Cp] 1 each PO DAILY - Follow Up or Referral - Forms/Instructions Additional Discharge Instructions: follow up with your main doctor in 1-2 weeks. Your doctor will need to let you know how much insulin you need. Your doctor will also need to check your kidneys. Please only take 10 units of your insulin (novolog 70-30) in the morning. Please check your sugars and give the readings to your main provider. Exam - Constitutional Vitals: Period Temp Pulse Resp BP Sys/Winn Pulse Ox Last 24 Hr 96.9 F-97.9 F 50-117 18-20 106-159/54-91 91-98 General appearance: no acute distress - Head Head exam: Present: normal inspection - Respiratory Respiratory exam: Present: clear to auscultation bilaterally. Absent: rales, rhonchi, wheezes - Cardiovascular Cardiovascular exam: Present: regular rate and rhythm - GI/Abdominal GI/Abdominal exam: Present: normal bowel sounds, soft. Absent: tenderness - Extremities Exam Extremities exam: Absent: edema - Neurological Exam Neurological exam: Present: alert (oriented x2), other (no dysarthria) - Psychiatric Psychiatric exam: Present: normal affect, normal mood - Skin Skin exam: Present: normal color, warm Discharge Results Procedures and tests throughout hospitalization: Pending Orders 01/04/17 Urine Culture Routine 01/04/17 19:12 Blood Culture Stat 01/05/17 16:32 Occult Blood, Stool Routine Labs on day of discharge: Labs from last 24 hours 01/06/17 01/06/17 01/06/17 07:39 05:33 05:33 WBC RBC Hgb Hct MCV MCH MCHC RDW Plt Count MPV Neut % (Auto) Lymph % (Auto) [place] % (Auto) Eos % (Auto) Baso % (Auto) Neut # (Auto) Lymph # (Auto) [place] # (Auto) Eos # (Auto) Baso # (Auto) Immature Gran % Nucleated RBC % Immature Gran # Nucleated RBCs # Immature Plt Fraction Absolute Retic Percent Retic Retic Hgb Equivalent Sodium 143 Potassium 3.4 L Chloride 110 H Carbon Dioxide 27 Anion Gap 9.4 BUN 18 Creatinine 1.60 H GFR Calculation 33 BUN/Creatinine Ratio 11.00 Glucose 50 L POC Glucose 72 L Calculated Osmolality 283.0 Calcium 8.0 L Magnesium 2.1 Iron 97 TIBC 259 % Saturation 37.5 Ferritin 152.3 Vitamin B12 259 Free T4 0.34 L TSH 3rd Generation 50.700 H 01/06/17 01/05/17 01/05/17 05:33 20:09 15:06 WBC 5.2 RBC 2.65 L Hgb 9.6 L Hct 27.9 L MCV 105.3 H MCH 36 H MCHC 34.4 RDW 14.5 Plt Count 154 MPV 9.6 Neut % (Auto) 49.8 Lymph % (Auto) 36.8 [place] % (Auto) 11.4 Eos % (Auto) 1.6 Baso % (Auto) 0.2 Neut # (Auto) 2.6 Lymph # (Auto) 1.9 [place] # (Auto) 0.6 Eos # (Auto) 0.1 Baso # (Auto) 0.0 Immature Gran % 0.2 Nucleated RBC % 0.0 Immature Gran # 0.01 Nucleated RBCs # 0.00 Immature Plt Fraction 0.0 Absolute Retic 0.1 Percent Retic 2.4 H Retic Hgb Equivalent 38.5 H Sodium Potassium Chloride Carbon Dioxide Anion Gap BUN Creatinine GFR Calculation BUN/Creatinine Ratio Glucose POC Glucose 270 H 85 Calculated Osmolality Calcium Magnesium Iron TIBC % Saturation Ferritin Vitamin B12 Free T4 TSH 3rd Generation 01/05/17 01/05/17 11:43 07:25 WBC RBC Hgb Hct MCV MCH MCHC RDW Plt Count MPV Neut % (Auto) Lymph % (Auto) [place] % (Auto) Eos % (Auto) Baso % (Auto) Neut # (Auto) Lymph # (Auto) [place] # (Auto) Eos # (Auto) Baso # (Auto) Immature Gran % Nucleated RBC % Immature Gran # Nucleated RBCs # Immature Plt Fraction Absolute Retic Percent Retic Retic Hgb Equivalent Sodium Potassium Chloride Carbon Dioxide Anion Gap BUN Creatinine GFR Calculation BUN/Creatinine Ratio Glucose POC Glucose 146 H 71 L Calculated Osmolality Calcium Magnesium Iron TIBC % Saturation Ferritin Vitamin B12 Free T4 TSH 3rd Generation Preliminary micro results at discharge 01/04/17 19:12 Blood Culture - Preliminary Blood No growth at 1 day 01/04/17 19:12 Blood Culture - Preliminary Blood No growth at 1 day 01/04/17 Unknown Urine Culture - Preliminary Urine,Voided No Growth at 24 hours. - Impressions Active Issues: 1. Slurred speech, concerning for stroke. Now resolved. Patient seen by neurology and Dr. Hair did not think she had a stroke. Her abnormal speech may be influenced by her edentulous state. Carotid doppler shows <50% carotid artery stenosis. 2. Acute encephalopathy, could be 2nd to UTI, mild dehydration, or hypoglycemic episodes 3. Possible UTI: UA with pyuria; UCX shows no growth; received antibiotics while inpatient; will not order antibiotics upon discharge 4. JACKELINE/dehydration: overall improved/resolved 5. Anemia: HCT dropped but stable; could be dilutional 6. h/o DM: hba1c of 10.1; low morning sugars; so, will hold pm novolog 70-30 and reduce am novolog 70-30 to 10U; patient will need to follow up with PCM 7. h/o P-afib: on eliquis and amiodarone 8. HypoK: replete; monitor 9. Hemodynamically and clinically stable; safe for discharge; she will need to follow up with PCM in 1-2 weeks DS: Provider Date of admission: 01/04/17 15:57 Primary care physician: Davis Louise, Attending physician on admission: Nicholas Jacome MD Consults: 01/04/17 16:22 Consult to Case Mgmt/Social Srvs [CONS] Routine Reason for Case Mgmt/Social Srvs: Discharge Planning Consult to Occupational Therapy [CONS] Routine Reason for Occupational Therapy: Evaluate and Treat Consult Comment: Stroke Consult to Physical Therapy [CONS] Routine Reason for Physical Therapy: Evaluate and Treat Consult Comment: stroke 01/04/17 17:56 Consult to Physician [CONS] Routine Comment: slurred speach Consulting Provider: Giancarlo Hair Person Notified: Agueda Date Notified: 01/05/17 Time Notified: 09:12 Consult Notification Comment: left message [id number]- 01/05/17 Discharging clinician: Clinton Springer MD
[2017-01-06] MEDS ORDERED: POTASSIUM CHLORIDE 20 MEQ TABLET PO ONE (10:55)
--- NOTE | 2017-01-06 11:08 | Order Completion Report ---
See report scanned to EMR
--- NOTE | 2017-01-06 11:57 | Order Completion Report ---
See report scanned to EMR
[2017-01-06 15:42] VITALS: BP 162/80
--- NOTE | 2017-01-09 18:03 | Order Completion Report ---
See report scanned to EMR
== END 2017-01-06 16:49 | disposition home or self-care (01) | DRG 637 ==
LOC: N.ED 13:53 → SUATTDRO 16:53 → N.EDINP 16:53 → N.5E 17:10
PROVIDERS: ADMIT Internal Medicine; ATTEND Internal Medicine

== ENCOUNTER 2018-04-23 10:53 | Inpatient (IN) ==
[2018-04-23 12:35] LABS: Basophils % 0.2 % (0.0-0.8); Eosinophils % 0.2 % (0.00-10.9); Hematocrit 26.8 VOL% (35.7-47.0); Hemoglobin 8.8 GM/DL (12.0-16.0); Immature Granulocytes % 0.4 %; Immature Granulocytes Absolute 0.02 #; Lymphocytes # 1.3 10*3/uL (1.4-4.0); Lymphocytes % 23.1 % (21.3-54.2); Mean Corpuscular HGB Conc 32.8 GM/DL (32-36); Mean Corpuscular Hemoglobin 34 PG (27-34); Mean Corpuscular Volume 104.3 FL (87-102); Mean Platelet Volume 10.2 FL (9.6-12.0); Monocytes # 0.6 10*3/uL (0.11-0.8); Neutrophils # 3.8 10*3/uL (1.4-7.4); Neutrophils % 66.1 % (38.7-73.9); Platelet Count 262 T/CUMM (130-400); Red Blood Count 2.57 MC/CUMM (3.8-5.5); Red Cell Distribution Width 16.4 % (9.3-17.3); White Blood Count 5.7 T/CUMM (4-12)
[2018-04-23 12:43] LABS: Apearance,Urine CLOUDY (Clear); Bacteria,Urine Many /HPF (Few); Bilirubin,Urine Negative (Negative); Blood, Urine Moderate mg/dL (Negative); Glucose,Urine (UA) >=500 mg/dL (Negative); Ketones,Urine Negative (Negative); Nitrite,Urine Negative (Negative); Protein,Urine 100 MG/DL; RBC,Urine 1012 /HPF (0-4); Squamous Epithelial Cell,Urine Occasional /HPF (0-10); Urine Color Yellow (Yellow); Urine Specific Gravity 1.018 (1.001-1.035); Urine Urobilinogen < 2.0 EU/DL (0.2-1.0); WBC,Urine 65 /HPF (0-6)
[2018-04-23] MEDS ORDERED: SODIUM CHLORIDE 0.9% 1,000 ML IV STA (13:11)
[2018-04-23 13:42] LABS: Bilirubin,Total 0.7 MG/DL (0.2-1.0); Calcium 8.3 MG/DL (8.5-10.1); Osmolality,Calculated 291.7 MOS/KG (273-304); Potassium 3.6 MMOL/L (3.5-5.1); Total Protein 7.3 G/DL (6.4-8.3)
[2018-04-23] MEDS ORDERED: cefTRIAXone 1,000 MG in SODIUM CHLORIDE 0.9% 100 ML IV STA (13:51)
[2018-04-23 14:02] LABS: Albumin 3.7 G/DL (3.4-5.0)
[2018-04-23] MEDS ORDERED: GLUCAGON 1 MG VIAL IM PRN (14:16)
[2018-04-23] MEDS ORDERED: BISACODYL 5 MG TABLET PO PRN (14:16)
[2018-04-23] MEDS ORDERED: ONDANSETRON 4 MG/2 ML VIAL IV PRN (14:16)
[2018-04-23] MEDS ORDERED: cefTRIAXone 1,000 MG VIAL ONE (14:23)
[2018-04-23] MEDS ORDERED: INSULIN LISPRO 100 UNIT/ML ONE (14:47)
[2018-04-23] MEDS ORDERED: INSULIN REGULAR 100 UNIT/ML SUBCUT STA (14:49)
[2018-04-23] MEDS: SODIUM CHLORIDE 0.45% 1,000 ML IV SCH (15:02)
[2018-04-23] MEDS: INSULIN LISPRO 100 UNIT/ML SUBCUT SCH ×2 (16:49→21:14)
[2018-04-23 16:58] LABS: % Iron Saturation 54.8 % (18-50); Ferritin 139.6 ng/ml (8-252)
[2018-04-23 17:15] LABS: Folate 10.6 NG/ML (5.4-24.0)
[2018-04-23] MEDS: INSULIN ASPART PROTAMINE/ASPART 70/30 100 UNIT/ML SUBCUT SCH (21:14)
[2018-04-23] MEDS: GABAPENTIN 100 MG CAPSULE PO SCH (21:14)
[2018-04-23] MEDS: PROPRANOLOL 10 MG TABLET PO SCH (21:14)
[2018-04-23] MEDS: PANTOPRAZOLE 40 MG TABLET PO SCH (21:14)
[2018-04-23] MEDS: APIXABAN 5 MG TABLET PO SCH (21:14)
[2018-04-23] MEDS: MAGNESIUM OXIDE 400 MG TABLET PO SCH (21:14)
[2018-04-24 04:51] LABS: Basophils % 0.1 % (0.0-0.8); Eosinophils % 0.4 % (0.00-10.9); Hematocrit 27.4 VOL% (35.7-47.0); Hemoglobin 9.2 GM/DL (12.0-16.0); Immature Granulocytes % 0.4 %; Immature Granulocytes Absolute 0.03 #; Lymphocytes # 1.7 10*3/uL (1.4-4.0); Mean Corpuscular HGB Conc 33.6 GM/DL (32-36); Mean Corpuscular Hemoglobin 35 PG (27-34); Mean Corpuscular Volume 103.8 FL (87-102); Mean Platelet Volume 9.7 FL (9.6-12.0); Monocytes # 0.8 10*3/uL (0.11-0.8); Monocytes % 9.8 % (1.7-12.7); NRBC # 0.03 10*3/uL; Neutrophils # 5.4 10*3/uL (1.4-7.4); Neutrophils % 68.3 % (38.7-73.9); Platelet Count 299 T/CUMM (130-400); Red Blood Count 2.64 MC/CUMM (3.8-5.5); Red Cell Distribution Width 16.1 % (9.3-17.3); White Blood Count 7.9 T/CUMM (4-12)
[2018-04-24 05:08] LABS: Calcium 8.6 MG/DL (8.5-10.1); Osmolality,Calculated 269.7 MOS/KG (273-304); Potassium 2.7 MMOL/L (3.5-5.1); Risk Ratio 2.94; VLDL CHOLESTEROL 21.8 MG/DL
[2018-04-24] MEDS: DEXTROSE 50% 25 GM/50 ML VIAL IV PRN ×2 (05:28→07:10)
[2018-04-24] MEDS: SODIUM CHLORIDE 0.45% 1,000 ML IV SCH ×2 (05:38→15:35)
[2018-04-24] MEDS: LEVOTHYROXINE 100 MCG TABLET PO SCH (07:11)
[2018-04-24] MEDS: INSULIN LISPRO 100 UNIT/ML SUBCUT SCH ×4 (08:58→21:54)
[2018-04-24] MEDS: INSULIN ASPART PROTAMINE/ASPART 70/30 100 UNIT/ML SUBCUT SCH ×2 (08:58→21:54)
[2018-04-24] MEDS ORDERED: TRIAMTERENE/HCTZ 37.5-25 MG TABLET PO SCH (09:00)
[2018-04-24] MEDS: PROPRANOLOL 10 MG TABLET PO SCH ×2 (09:17→21:54)
[2018-04-24] MEDS: PANTOPRAZOLE 40 MG TABLET PO SCH ×2 (09:17→21:54)
[2018-04-24] MEDS: MAGNESIUM OXIDE 400 MG TABLET PO SCH ×2 (09:17→21:54)
[2018-04-24] MEDS: AMIODARONE 200 MG TABLET PO SCH (09:17)
[2018-04-24] MEDS: SIMVASTATIN 20 MG TABLET PO SCH (09:17)
[2018-04-24] MEDS: MULTIVITAMIN (OCUVITE) TABLET PO SCH (09:17)
[2018-04-24] MEDS: GABAPENTIN 100 MG CAPSULE PO SCH ×3 (09:17→21:54)
[2018-04-24] MEDS: APIXABAN 5 MG TABLET PO SCH ×2 (09:18→21:54)
[2018-04-24] MEDS: SKIN HEALING OINT (AQUAPHOR) 50 GM TUBE TOP SCH (13:49)
[2018-04-24] MEDS: cefTRIAXone 1,000 MG in SYRINGE 1 EACH IV SCH (15:35)
[2018-04-24] MEDS ORDERED: POTASSIUM CHLORIDE 20 MEQ TABLET PO PRN (19:08)
[2018-04-25] MEDS: SODIUM CHLORIDE 0.45% 1,000 ML IV SCH ×3 (02:27→20:49)
[2018-04-25 05:18] LABS: Basophils % 0.3 % (0.0-0.8); Eosinophils % 0.5 % (0.00-10.9); Hematocrit 23.1 VOL% (35.7-47.0); Immature Granulocytes % 0.5 %; Immature Granulocytes Absolute 0.03 #; Lymphocytes % 31.1 % (21.3-54.2); Mean Corpuscular Hemoglobin 34 PG (27-34); Mean Platelet Volume 9.8 FL (9.6-12.0); Monocytes # 0.6 10*3/uL (0.11-0.8); Monocytes % 8.7 % (1.7-12.7); Neutrophils # 3.7 10*3/uL (1.4-7.4); Neutrophils % 58.9 % (38.7-73.9); Platelet Count 215 T/CUMM (130-400); Red Blood Count 2.18 MC/CUMM (3.8-5.5); Red Cell Distribution Width 16.5 % (9.3-17.3); White Blood Count 6.3 T/CUMM (4-12)
[2018-04-25 05:33] LABS: Calcium 7.5 MG/DL (8.5-10.1); Osmolality,Calculated 268.4 MOS/KG (273-304); Potassium 3.7 MMOL/L (3.5-5.1)
[2018-04-25] MEDS: LEVOTHYROXINE 100 MCG TABLET PO SCH (06:52)
[2018-04-25 06:57] LABS: Hemoglobin 7.4 GM/DL (12.0-16.0)
[2018-04-25] MEDS: AMIODARONE 200 MG TABLET PO SCH (09:25)
[2018-04-25] MEDS: MULTIVITAMIN (OCUVITE) TABLET PO SCH (09:25)
[2018-04-25] MEDS: GABAPENTIN 100 MG CAPSULE PO SCH ×3 (09:25→20:45)
[2018-04-25] MEDS: PROPRANOLOL 10 MG TABLET PO SCH ×2 (09:25→20:45)
[2018-04-25] MEDS: PANTOPRAZOLE 40 MG TABLET PO SCH ×2 (09:25→20:45)
[2018-04-25] MEDS: MAGNESIUM OXIDE 400 MG TABLET PO SCH ×2 (09:25→20:45)
[2018-04-25] MEDS: SIMVASTATIN 20 MG TABLET PO SCH (09:25)
[2018-04-25] MEDS: APIXABAN 5 MG TABLET PO SCH ×2 (09:25→20:45)
[2018-04-25] MEDS: SKIN HEALING OINT (AQUAPHOR) 50 GM TUBE TOP SCH (09:26)
[2018-04-25] MEDS: INSULIN ASPART PROTAMINE/ASPART 70/30 100 UNIT/ML SUBCUT SCH ×2 (09:26→20:53)
[2018-04-25] MEDS: INSULIN LISPRO 100 UNIT/ML SUBCUT SCH ×4 (09:26→20:48)
[2018-04-25] MEDS ORDERED: TUBERCULIN SKIN TEST 0.1 ML SYRINGE INTRADERM ONE (13:06)
[2018-04-25] MEDS: cefTRIAXone 1,000 MG in SYRINGE 1 EACH IV SCH (15:32)
[2018-04-26 06:15] LABS: Basophils % 0.2 % (0.0-0.8); Eosinophils % 0.5 % (0.00-10.9); Hematocrit 22.2 VOL% (35.7-47.0); Hemoglobin 7.2 GM/DL (12.0-16.0); Immature Granulocytes % 0.3 %; Immature Granulocytes Absolute 0.02 #; Lymphocytes % 33.6 % (21.3-54.2); Mean Corpuscular HGB Conc 32.4 GM/DL (32-36); Mean Corpuscular Hemoglobin 34 PG (27-34); Mean Corpuscular Volume 105.7 FL (87-102); Monocytes # 0.5 10*3/uL (0.11-0.8); Monocytes % 8.4 % (1.7-12.7); NRBC # 0.02 10*3/uL; Neutrophils # 3.3 10*3/uL (1.4-7.4); Platelet Count 201 T/CUMM (130-400); Red Cell Distribution Width 16.6 % (9.3-17.3); White Blood Count 5.8 T/CUMM (4-12)
[2018-04-26 06:39] LABS: Calcium 7.2 MG/DL (8.5-10.1); Osmolality,Calculated 261.1 MOS/KG (273-304); Potassium 4.1 MMOL/L (3.5-5.1)
[2018-04-26] MEDS: LEVOTHYROXINE 100 MCG TABLET PO SCH (06:49)
[2018-04-26] MEDS: INSULIN LISPRO 100 UNIT/ML SUBCUT SCH ×2 (10:11→13:26)
[2018-04-26] MEDS: INSULIN ASPART PROTAMINE/ASPART 70/30 100 UNIT/ML SUBCUT SCH (10:11)
[2018-04-26] MEDS: GABAPENTIN 100 MG CAPSULE PO SCH (10:12)
[2018-04-26] MEDS: MAGNESIUM OXIDE 400 MG TABLET PO SCH (10:12)
[2018-04-26] MEDS: MULTIVITAMIN (OCUVITE) TABLET PO SCH (10:12)
[2018-04-26] MEDS: SIMVASTATIN 20 MG TABLET PO SCH (10:12)
[2018-04-26] MEDS: SODIUM CHLORIDE 0.45% 1,000 ML IV SCH (10:12)
[2018-04-26] MEDS: AMIODARONE 200 MG TABLET PO SCH (10:12)
[2018-04-26] MEDS: PANTOPRAZOLE 40 MG TABLET PO SCH (10:13)
[2018-04-26] MEDS: APIXABAN 5 MG TABLET PO SCH (10:13)
[2018-04-26] MEDS: SKIN HEALING OINT (AQUAPHOR) 50 GM TUBE TOP SCH (10:13)
[2018-04-26] MEDS: PROPRANOLOL 10 MG TABLET PO SCH (10:13)
[2018-04-26 14:23] VITALS: BP 133/77
== END 2018-04-26 13:43 | DRG 638 ==
LOC: N.ED 10:53 → N.EDINP 14:16 → SUATTDRO 14:16 → N.EDINP 16:13 → N.5E 16:31
PROVIDERS: ADMIT Internal Medicine; ATTEND Family Medicine

== ENCOUNTER 2019-01-01 03:00 | Inpatient (IN) ==
[2019-01-01] MEDS ORDERED: NOREPINEPHRINE 8 MG in SODIUM CHLORIDE 0.9% 242 ML IV PRN (05:42)
[2019-01-01] MEDS ORDERED: PROMETHAZINE 25 MG/1 ML VIAL IM PRN (06:06)
[2019-01-01] MEDS ORDERED: ONDANSETRON 4 MG/2 ML VIAL IV PRN (06:06)
[2019-01-01] MEDS ORDERED: ALBUTEROL 2.5 MG/3 ML NEB RESP TX PRN (06:06)
[2019-01-01 06:19] LABS: Basophils % 0.2 % (0.0-0.8); Hematocrit 21.8 VOL% (35.7-47.0); Hemoglobin 7.1 GM/DL (12.0-16.0); Immature Granulocytes % 1.5 %; Immature Granulocytes Absolute 0.35 #; Lymphocytes % 4.2 % (21.3-54.2); Mean Corpuscular HGB Conc 32.6 GM/DL (32-36); Mean Corpuscular Volume 99.5 FL (87-102); Mean Platelet Volume 9.8 FL (9.6-12.0); Monocytes % 13.5 % (1.7-12.7); NRBC # 0.05 10*3/uL; Neutrophils % 80.6 % (38.7-73.9); Platelet Count 205 T/CUMM (130-400); Red Blood Count 2.19 MC/CUMM (3.8-5.5); Red Cell Distribution Width 16.8 % (9.3-17.3); White Blood Count 23.9 T/CUMM (4-12)
[2019-01-01] MEDS ORDERED: SODIUM CHLORIDE 0.9% 1,000 ML IV SCH ×2 (06:30→08:34)
[2019-01-01] MEDS ORDERED: DEXTROSE 10% 250 ML BAG IV PRN (06:35)
[2019-01-01] MEDS ORDERED: GLUCAGON 1 MG VIAL IM PRN (06:35)
[2019-01-01 06:41] LABS: Hypochromasia 1+; Lymphocytes 9 % (20-55); Metamyelocytes 1 %; Microcytosis 1+; Platelet Estimate Normal; Polychromasia Few; Segmented Neutrophils 83 % (50-85); Total Cells Counted 100
[2019-01-01 06:42] LABS: Elliptocytes Few
[2019-01-01 06:44] LABS: Alanine Aminotransferase 37 U/L (13-56); Alkaline Phosphatase 142 U/L (45-117); Aspartate Amino Transferase 89 U/L (0-37); Blood Urea Nitrogen 40 MG/DL (7-18); Calcium 8.8 MG/DL (8.5-10.1); Estimated Glom Filtration Rate 19 ML/MIN; Glucose 81 MG/DL (74-106); Osmolality,Calculated 257.6 MOS/KG (273-304); Total Protein 7.3 G/DL (6.4-8.3)
[2019-01-01 06:56] LABS: ABG Base Excess -6.2 MMOL/L (-2.5-2.5); ABG HCO3 19.3 MMOL/L (20-26); ABG Oxygen Saturation 98.3 % (95-100); ABG PCO2 58.9 MM HG (35-48); ABG TCO2 21.5 MMOL/L (23-27); Allen Test Positive; Pt O2 Delivery Device Venturi Mask
[2019-01-01 06:58] LABS: ABG PH 7.184 (7.35-7.45)
[2019-01-01] MEDS: PIPERACILLIN/TAZOBACTAM 3,375 MG in SODIUM CHLORIDE 0.9% 100 ML IV SCH ×2 (07:45→14:12)
[2019-01-01 08:09] LABS: Apearance,Urine CLOUDY (Clear); Bacteria,Urine Many /HPF (Few); Bilirubin,Urine Negative (Negative); Blood, Urine Moderate mg/dL (Negative); Glucose,Urine (UA) Negative (Negative); Ketones,Urine Negative (Negative); Nitrite,Urine Negative (Negative); Protein,Urine 100 MG/DL; RBC,Urine 25 /HPF (0-4); Squamous Epithelial Cell,Urine Occasional /HPF (0-10); Urine Color Amber (Yellow); Urine Specific Gravity 1.008 (1.001-1.035); Urine Urobilinogen < 2.0 EU/DL (0.2-1.0); WBC,Urine 669 /HPF (0-6)
[2019-01-01] MEDS ORDERED: VANCOMYCIN INJ 1,250 MG in SODIUM CHLORIDE 0.9% 250 ML IV ONE (08:30)
[2019-01-01 08:41] VITALS: BP 67/39
[2019-01-01] MEDS: INSULIN LISPRO 100 UNIT/ML SUBCUT SCH ×3 (09:22→16:02)
[2019-01-01 15:14] LABS: Basophils # 0.1 10*3/uL (0.0-0.2); Basophils % 0.2 % (0.0-0.8); Hematocrit 20.6 VOL% (35.7-47.0); Hemoglobin 6.5 GM/DL (12.0-16.0); Immature Granulocytes Absolute 0.23 #; Lymphocytes # 1.6 10*3/uL (1.4-4.0); Mean Corpuscular HGB Conc 31.6 GM/DL (32-36); Mean Platelet Volume 10.2 FL (9.6-12.0); Monocytes % 5.6 % (1.7-12.7); NRBC # 0.15 10*3/uL; Neutrophils % 86.2 % (38.7-73.9); Platelet Count 196 T/CUMM (130-400); Red Blood Count 2.02 MC/CUMM (3.8-5.5); Red Cell Distribution Width 17.4 % (9.3-17.3); White Blood Count 23.2 T/CUMM (4-12)
[2019-01-01] MEDS ORDERED: MORPHINE 4 MG/1 ML VIAL IV PRN (15:29)
[2019-01-01 15:39] LABS: Hypochromasia Slight; Lymphocytes 3 % (20-55); Macrocytosis Slight; Platelet Estimate Normal; Segmented Neutrophils 92 % (50-85); Total Cells Counted 100
[2019-01-02] MEDS ORDERED: LEVOTHYROXINE 100 MCG VIAL IV SCH (06:30)
== END 2019-01-01 16:20 | disposition expired | DRG 64 ==
LOC: SUATTDRO 04:55 → N.ICU 04:55
PROVIDERS: ADMIT Internal Medicine; ATTEND Internal Medicine